=== PATIENT | male | born 1995 | race Caucasian/White ===

== ENCOUNTER 2017-08-29 21:39 | Emergency (ER) | payer SELFPAY ==
[2017-08-29 21:49] VITALS: BP 120/77; PULSE 84; TEMP 99.6; BMI 22.7
--- NOTE | 2017-08-29 21:53 | PDOC ---
Rapid Medical Evaluation Chief Complaint: Weakness Time Seen by Provider: 08/29/17 21:46 Medical Evaluation: Allergies Allergy/AdvReac Type Severity Reaction Status Date / Time No Known Allergies Allergy Verified 08/29/17 21:47 08/29/17 21:47 22 year old male with bodyaches, weakness, fever started at 12 pm. vomited 3 times today PE: Plan: rapid flu Patient to the ED for for further management of care.
[2017-08-29] MEDS ORDERED: OSELTAMIVIR PHOSPHATE 75 MG CAPSULE PO ONE (23:12)
--- NOTE | 2017-08-29 23:12 | PDOC ---
History of Present Illness - General Chief Complaint: Weakness Stated Complaint: WEAKNESS Time Seen by Provider: 08/29/17 21:46 History Source: Patient Exam Limitations: No Limitations - History of Present Illness Initial Comments: 08/29/17 23:15 22 yo M without pmhx presents to the ER with his c/o fever/tmax 101.0(oral ) x2 hours ago/chills, non productive cough x24 hours without palmer, dizziness, lightheadedness, facial pain, rhinnorhea, nasal congestion, neck stiffness/pain , back pain, cp, sob, abd pain, flank pain, uti symptoms, ext numbess/tingling sensation. Pt took nyquil but nothing for his fever x1 hour ago. Pt states he's been exposed and in close contact with coworkers with influenza. Timing/Duration: 24 hours Associated Symptoms: reports: cough, fever/chills, malaise. denies: chest pain , headaches, loss of appetite Past History - Past Medical History Allergies/Adverse Reactions: Allergies Allergy/AdvReac Type Severity Reaction Status Date / Time No Known Allergies Allergy Verified 08/29/17 21:47 Home Medications: Ambulatory Orders Oseltamivir Phosphate [Tamiflu] 75 mg PO DAILY #9 capsule 08/29/17 COPD: No - Suicide/Smoking/Psychosocial Hx Smoking History: Never smoked Review of Systems - Review of Systems Able to Perform ROS?: Yes Comments:: 08/29/17 23:14 CONSTITUTIONAL: +fever, chills, generalized weakness Absent: diaphoresis, malaise, loss of appetite HEENT: Absent: rhinorrhea, nasal congestion, throat pain, throat swelling, difficulty swallowing, mouth swelling, ear pain, eye pain, visual Changes CARDIOVASCULAR: Absent: chest pain, loss of consciousness, palpitations, irregular heart rate, peripheral edema RESPIRATORY: +cough Absent:shortness of breath, dyspnea with exertion, orthopnea, wheezing, stridor , hemoptysis GASTROINTESTINAL: Absent: abdominal pain, abdominal distension, nausea, vomiting, diarrhea, constipation, melena, hematochezia GENITOURINARY: Absent: dysuria, frequency, urgency, hesitancy, hematuria, flank pain, genital pain MUSCULOSKELETAL: Absent: myalgia, arthralgia, joint swelling SKIN: Absent: rash, itching, pallor HEMATOLOGIC/IMMUNOLOGIC: Absent: easy bleeding, easy bruising, lymphadenopathy, frequent infections ENDOCRINE: Absent: unexplained weight gain, unexplained weight loss, heat intolerance, cold intolerance NEUROLOGIC: Absent: headache, focal weakness or paresthesias, dizziness, unsteady gait, seizure, mental status changes, bladder or bowel incontinence Is the patient limited Green[place]ic proficient: No *Physical Exam - Vital Signs Last Vital Signs Temp Pulse Resp BP Pulse Ox 99.6 F 84 18 120/77 99 08/29/17 21:47 08/29/17 21:47 08/29/17 21:47 08/29/17 21:47 08/29/17 21:47 - Physical Exam Comments: 08/29/17 23:14 GENERAL: Well developed, well nourished. Awake and alert. No acute distress. HEENT: Normocephalic, atraumatic. PERRLA, EOMI. No conjunctival pallor. Sclera are non- icteric. Moist mucous membranes. Oropharynx is clear. NECK: Supple. Full ROM. No JVD. Carotid pulses 2+ and symmetric, without bruits. No thyromegaly. No lymphadenopathy. CARDIOVASCULAR: Regular rate and rhythm. No murmurs, rubs, or gallops. Distal pulses are 2+ and symmetric. PULMONARY: No evidence of respiratory distress. Lungs clear to auscultation bilaterally. No wheezing, rales or rhonchi. ABDOMINAL: Soft. Non-tender. Non-distended. No rebound or guarding. No organomegaly. Normoactive bowel sounds. MUSCULOSKELETAL Normal range of motion at all joints. No bony deformities or tenderness. No CVA tenderness. EXTREMITIES: No cyanosis. No clubbing. No edema. No calf tenderness. SKIN: Warm and dry. Normal capillary refill. No rashes. No jaundice. NEUROLOGICAL: Alert, awake, appropriate. Cranial nerves 2-12 intact. No deficits to light touch and temperature in face, upper extremities and lower extremities. No motor deficits in the in face, upper extremities and lower extremities. Normoreflexic in the upper and lower extremities. Normal speech. Toes are down- going bilaterally. Gait is normal without ataxia. PSYCHIATRIC: Cooperative. Good eye contact. Appropriate mood and affect. ED Treatment Course - ADDITIONAL ORDERS Additional order review: 08/29/17 21:55 Influenza Types A,B Antigen (MIGUEL) - Final Nasopharyngeal Swab - Final *DC/Admit/Observation/Transfer Diagnosis at time of Disposition: Viral syndrome, Exposure to influenza - Discharge Dispostion Disposition: HOME Condition at time of disposition: Stable Admit: No - Prescriptions Prescriptions: Oseltamivir Phosphate [Tamiflu] 75 mg PO DAILY #9 capsule - Referrals Referrals: Loy Peter MD [Staff Physician] - - Patient Instructions Printed Discharge Instructions: Influenza, DI for Viral Syndrome Additional Instructions: Increase fluids You have been prescribed Tamiful 75mg take 1 tablet a day for the next 9 days. You took one tablet in the ER tonight. REst Return to the ER for severe/persistent/worsening symptoms - Post Discharge Activity
[2017-08-29] MEDS ORDERED: OSELTAMIVIR PHOSPHATE 75 MG CAPSULE ONE (23:15)
== END 2017-08-29 23:26 | disposition home or self-care (01) ==
LOC: JERFT 21:39
DX: B34.9 Viral infection, unspecified (principal); Z20.828 Contact with and (suspected) exposure to other viral communicable diseases
CPT/HCPCS: 87804; 99281-25